=== PATIENT | female | born 1985 | race Caucasian/White ===

== ENCOUNTER 2017-10-19 14:17 | Emergency (ER) | payer OTHER ==
--- NOTE | 2017-10-19 15:30 | EDPHY ---
HPI/HX/ROS/PE/MDM Narrative: CHIEF COMPLAINT: Right facial/neck injury HPI: This patient is a 32 year old female complaining of pain to her neck and jaw secondary to being struck on the right side of her face by her snowboard. She put her snowboard leaning vertically against her car, and when she leaned over the board fell and hit her across the right side of her face. She noted redness and swelling, and the area was too tender to touch. She took two Aleve immediately following the incident. She went to lunch but was not able to eat well due to pain in her jaw. Currently, her pain is decreasing and her jaw feels less tender, but she continues to note pain and is primarily concerned regarding her difficulty chewing. She denies any other trauma or further complaints. REVIEW OF SYSTEMS: Gen: No fever, no chills PMH: Denies. SOCIAL HISTORY: Lives in [place]. PHYSICAL EXAM: General: Patient is alert, in no acute distress. Head: Small abrasion just superior to right angle of mandible. Tenderness along right angle of mandible. Normal inspection of mouth, normal dentition. Partially able to complete tongue blade test. Neck: Normal to inspection, full range of motion. Neuro: Oriented x3. Normal motor function. Normal sensory function. ED Course: 32 year old female presents with right-sided jaw and neck pain secondary to her snowboard falling against her face earlier this afternoon. Exam reveals a small abrasion to and tenderness along the angle of the right mandible. She was able to partially complete the tongue blade test. Plan for x-ray of mandible. The patient declines pain medication at this time, and took two Aleve prior to arrival. 16:07 Reviewed x-ray. Preliminary interpretation: negative for acute osseous abnormalities. Pending radiologist read. 16:28 Radiologist report concurs with above. Reassessed patient, discussed results. Plan to discharge home in good condition. Follow up and return precautions discussed. The patient is comfortable with this plan. - Data Points Imaging Results: Imaging Impressions Mandible X-Ray 10/19/17 15:31 Impression: No radiographic findings for mandible fracture. Imaging: I viewed and interpreted images myself General Time Seen by Provider: 10/19/17 15:26 Initial Vital Signs: Initial Vital Signs Temperature (C) 36.7 C 10/19/17 14:40 Heart Rate 74 10/19/17 14:40 Respiratory Rate 16 12/04/17 14:40 Blood Pressure 112/74 10/19/17 14:40 O2 Sat (%) 98 10/19/17 14:40 O2 Delivery Mode Room Air Allergies/Adverse Reactions: No Known Allergies Allergy (Unverified 10/19/17 14:49) Home Medications: Medication Instructions Recorded NK [No Known Home Meds] 10/19/17 Departure - Departure Disposition: Home, Routine, Self-Care Clinical Impression: Contusion of jaw Qualifiers: Encounter type: initial encounter Qualified Code(s): S00.83XA - Contusion of other part of head, initial encounter Condition: Good Instructions: Facial Contusion (ED) Additional Instructions: Take Tylenol or Ibuprofen as directed below as needed for pain. You may apply ice for comfort. Follow up with an ear, nose, and throat specialist or oral-maxillofacial surgeon within one week if pain persists. Return to the emergency department for worsening pain, swelling, numbness, inability to chew or speak properly, or other concerns. Adult Pain & Fever Control: We recommend Acetaminophen (Tylenol) and Ibuprofen (Motrin,Advil) for pain and fever control. When fever is high or pain severe, both drugs can be used at the same time, but at different intervals. Please note the time differences. Your dose is: Acetaminophen 650mg every 4 to 6 hours Ibuprofen 600mg every 6-8 hours with food Note: do not take Acetaminophen with Hydrocodone (Vicodin, Lortab) or Oxycodone (Percocet). These medications also contain Acetaminophen. No more than 3000mg of Acetaminophen should be taken in 24 hours (for an adult). Referrals: [facility] [Other] - As per Instructions Diogenes Page MD [Medical Doctor] - As per Instructions Report Scribed for: Matthew Arguelles Report Scribed by: Jackeline Menon Date of Report: 10/19/17 Time of Report: 15:32 Physician Review and Approval Statement: Portions of this note were transcribed by an ED scribe. I personally performed the history, physical exam, and medical decision making; and confirm the accuracy of the information in the transcribed note.
[2017-10-19 16:37] VITALS: BP 132/78; PULSE 78; RESP 18; TEMP 98.6; O2SAT 95
== END 2017-10-19 16:37 | disposition home or self-care (01) ==
DX: S00.83XA Contusion of other part of head, initial encounter (principal); V00.311A Fall from snowboard, initial encounter